=== PATIENT | female | born 1940 | race Caucasian/White ===

== ENCOUNTER 2017-10-24 20:09 | Observation (INO) | payer OTHER, MEDICARE ==
[~2017-10-24] VITALS: Ht 165.1 cm; Wt 90.7 kg
--- NOTE | 2017-10-24 20:21 | ED SYNCOPE COMPLAINT ---
History of Present Illness General Chief Complaint: Fall Stated Complaint: FALL Source: patient Exam Limitations: no limitations Vital Signs & Intake/Output Vital Signs & Intake/Output Vital Signs Date Time Temp Pulse Resp B/P B/P Pulse O2 O2 Flow FiO2 Mean Ox Delivery Rate 10/25 0657 97.5 56 18 140/74 93 10/25 0220 Nasal 2.0L Cannula 10/25 0200 97.5 57 18 128/68 93 Nasal 2.0L Cannula 10/24 2229 96.7 57 20 143/63 97 Nasal 2.0L Cannula 10/24 2031 96.8 57 22 176/82 90 Room Air ED Intake and Output 10/25 0000 10/24 1200 Intake Total 0 Output Total Balance 0 Intake, Oral 0 Patient 200 lb Weight Weight Reported by Patient Measurement Method Allergies Coded Allergies: cefuroxime (From CEFTIN) (STOMACH UPSET 10/24/17) Reconcile Medications Alprazolam 0.5 MG TABLET 1 TAB PO TID ANXIETY (Reported) Divalproex Sodium (Divalproex Sodium ER) 500 MG TAB.ER.24H 1 TAB PO QPM UNKNOWN (Reported) Divalproex Sodium (Depakote ER) 250 MG TAB.ER.24H 1 TAB PO QPM UNKNOWN ( Reported) Donepezil HCl 5 MG TABLET 1 TAB PO DAILY MEMORY (Reported) Levothyroxine Sodium 88 MCG TABLET 1 TAB PO DAILY THYROID (Reported) Loxapine Succinate (Loxapine) 5 MG CAPSULE 1 CAP PO QHS MENTAL HEALTH ( Reported) Metoprolol Tartrate 50 MG TABLET 1 TAB PO DAILY HEART/BP (Reported) Paroxetine HCl 20 MG TABLET 1 TAB PO DAILY MENTAL HEALTH (Reported) Simvastatin (Simvastatin*) 20 MG TABLET 1 TAB PO QPM CHOLESTEROL (Reported) Triage Nurses Notes Reviewed? yes Timing: single episode today Precipitating Factors: none Context: see below Loss of Consciousness: prolonged (minutes) Associated Symptoms: syncope HPI: 77 yo woman was swimming in above ground pool, was taking the steps down, felt dizzy, fell backwards, lost consciousness briefly. She notes that she has no recollection of what transpired since lunch. She does not recall syncopal event, if she hit her head, had chest pain, palpations. She notes that presently, she is feeling better. Past History Medical History Any Pertinent Medical History? see below for history Cardiovascular: hypertension Psychiatric: depression History of MRSA: No History of VRE: No History of CDIFF: No Pneumonia Vaccine: 10/31/07 Influenza Vaccine: 01/29/12 Surgical History Surgical History: non-contributory Psychosocial History Who do you live with Spouse Services at Home None What is your primary language German Family History Hx Contributory? No Review of Systems Review of Systems Constitutional: Reports: no symptoms. EENTM: Reports: no symptoms. Respiratory: Reports: no symptoms. Cardiovascular: Reports: no symptoms. GI: Reports: no symptoms. Genitourinary: Reports: no symptoms. Musculoskeletal: Reports: no symptoms. Skin: Reports: no symptoms. Neurological/Psychological: Reports: no symptoms. All Other Systems: Reviewed and Negative Physical Exam Physical Exam Cranial Nerves: normal hearing, normal speech, PERRL Comments: Review of Systems - except as otherwise noted in HPI Physical Exam Physical Exam General Appearance: well developed/nourished, no apparent distress Head: atraumatic, normal appearance Eyes: Bilateral: normal appearance. Ears, Nose, Throat: normal pharynx, normal ENT inspection Neck: normal inspection, supple, full range of motion Respiratory: normal breath sounds, chest non-tender, no respiratory distress, quiet respiration, lungs clear Cardiovascular: regular rate/rhythm Gastrointestinal: normal bowel sounds, soft, non-tender, no organomegaly Back: normal inspection, normal range of motion Extremities: normal inspection, normal capillary refill, normal range of motion, no edema Neurologic/Psych: no motor/sensory deficits, awake, alert, oriented x 3 Skin: intact, normal color, warm/dry Core Measures ACS in differential dx? No CVA/TIA Diagnosis: No Sepsis Present: No Sepsis Focused Exam Completed? No Progress Differential Diagnosis: Syncope versus dysrhythmia versus other Plan of Care: Orders Procedure Date/time Status CBC WITHOUT DIFFERENTIAL 10/26 599 Active Heart Healthy Diet 10/25 B Active TROPONIN LEVEL 10/25 599 Active BASIC ELECTROLYTES PLUS BUN&CR 10/25 599 Active EKG 10/25 599 Active Pathway - chart 10/25 534 Active House Staff 10/25 534 Active Code Status 10/25 534 Active Vital Signs 10/26 219 Active Teach/Educate 10/26 219 Active Pain Treatment and Response 10/26 219 Active Nutritional Intake, Monitor 10/26 219 Active Isolation 10/26 219 Active Intake & Output 10/26 219 Active Patient Care Conference 10/26 219 Active Activity/Ambulation 10/25 022 Active Patient Data 10/25 0007 Active Add-on Test (ER Only) 10/25 0002 Active VTE Mechanical Prophylaxis 10/25 UNK Active MISTAKE 10/25 UNK Active Heat/Cold Therapy 10/25 UNK Active Saline Lock 10/[address] in observation 10/24 234 Active Misc Message 10/24 2346 Active ED Holding Orders 10/24 2346 Active Vital Signs 10/24 2346 Active Code Status 10/24 2346 Complete TROPONIN LEVEL 10/24 2228 Complete EKG 10/24 2228 Active DEPAKOTE LEVEL 10/24 2034 Complete Intake & Output 10/24 2030 Active TROPONIN LEVEL 10/24 2021 Complete LIPASE 10/24 2021 Complete HEPATIC FUNCTION PANEL 10/24 2021 Complete D-DIMER 10/24 2021 Complete CBC WITHOUT DIFFERENTIAL 10/24 2021 Complete BASIC METABOLIC PANEL 10/24 2021 Complete AMYLASE 10/24 2021 Complete EKG 10/24 2021 Active Current Medications Sig/Mehdi Start time Last Medication Dose Stop Time Status Admin Divalproex Sodium 500 MG QPM 10/25 2100 AC (Depakote ER) Divalproex Sodium 250 MG QPM 10/25 2100 AC (Depakote ER) Atorvastatin Calcium 10 MG 1700 10/25 1700 AC (Lipitor) Alprazolam 0.5 MG TID 10/25 899 AC (Xanax) 11/01 0859 Donepezil HCl 5 MG DAILY 10/25 899 AC (Aricept) Enoxaparin Sodium 40 MG DAILY 10/25 899 AC (Lovenox) Metoprolol Tartrate 50 MG DAILY 10/25 899 AC (Lopressor) Paroxetine HCl 20 MG DAILY 10/25 899 AC (Paxil) Levothyroxine Sodium 0.088 MG DAILY AC 10/25 699 AC (Synthroid) Acetaminophen 650 MG Q6P PRN 10/25 0445 AC (Tylenol) Ibuprofen 600 MG Q6P PRN 10/25 544 AC (Motrin) Non-Formulary 0 SEE ADMIN CRITERIA 10/25 544 UNVr Medication (NON FORMULARY) Laboratory Tests 10/24/17 2240: Troponin I < 0.01 10/24/172034: Anion Gap 8, Estimated GFR > 60, BUN/Creatinine Ratio 20.0, Glucose 98, Calcium 9.2, Total Bilirubin 0.2, Direct Bilirubin 0.2, AST 23, ALT 23, Alkaline Phosphatase 51, Troponin I < 0.01, Total Protein 7.0, Albumin 4.0, Amylase 64, Lipase 209, D-Dimer High Sensitivty 474 H, CBC w Diff NO MAN DIFF REQ, RBC 4.02 L, MCV 92.7, MCH 31.2 H, MCHC 33.7, RDW 14.1, MPV 8.2, Gran % 38.5 L, Lymphocytes % 40.6, Monocytes % 11.4 H, Eosinophils % 9.1 H, Basophils % 0.4, Absolute Granulocytes 1.9, Absolute Lymphocytes 2.0, Absolute Monocytes 0.6, Absolute Eosinophils 0.4, Absolute Basophils 0, Valproic Acid 50.6 Diagnostic Imaging: Viewed by Me: CT Scan. Discussed w/RAD: CT Scan. Radiology Impression: PATIENT: CECI DAVIS PRESENT AGE: 77 PATIENT ACCOUNT NO: [id number] : 40 LOCATION: [facility] ORDERING PHYSICIAN: Jamie Gomez MD SERVICE DATE: 10/24/17 EXAM TYPE: CAT - CTA CHEST-PULMONARY EMBOLISM EXAMINATION: CT ANGIOGRAM OF THE CHEST WITH AND WITHOUT CONTRAST (CT PULMONARY ANGIOGRAM FOR PE) CLINICAL INFORMATION: PERC score + and D-Dimer +, Presumptive Dx: syncope COMPARISON: Radiograph dated 01/01/2013 TECHNIQUE: Prior to contrast administration, noncontrast localization images were obtained. Subsequently, multidetector volumetric imaging was performed from the thoracic inlet to below the diaphragms following the administration of 95 mL Optiray 320 intravenous contrast. No contrast reaction reported. Sagittal, coronal, and MIP oblique sagittal reformatted images were obtained on the CT workstation, uploaded to PACS, and reviewed. Total exam dose-length product 363 mGy-cm. FINDINGS: QUALITY OF STUDY/ CONTRAST BOLUS: Satisfactory PULMONARY ARTERIES: No central or segmental pulmonary emboli. The pulmonary arteries are normal in caliber. Incidental note is made of a few small peripheral regions of aneurysmal dilatation of the pulmonary arteries including a 6 mm focus on image 248/451 of series 2, the elongated 9 mm focus on image 201/451 of series 2 and a 4 mm focus in the posterior aspect of the right lower lobe on image 253/451 of series 2. Multiple additional areas of peripheral pulmonary artery ectasia are noted. THORACIC AORTA: No aneurysm or dissection. Minimal calcific atherosclerosis of the aortic arch. LUNG: Mild bibasilar atelectasis. No focal consolidation. Central airways are clear. PLEURA: No effusion. MEDIASTINUM: Normal heart size. No pericardial effusion. No hilar or mediastinal lymphadenopathy. No evidence of septal bowing or right heart strain. Calcific atherosclerosis present in the coronary arteries. CHEST WALL/AXILLA: No axillary or internal mammary lymphadenopathy. OSSEOUS STRUCTURES: Scoliosis is present in the thoracolumbar spine. There is mild to moderate multilevel degenerative disc disease. Prior vertebroplasty is evident at the T12 level. No acute rib fractures are identified. UPPER ABDOMEN: Cholecystectomy clips are present. No acute findings. There is a 2.3 cm calcification underlying the right hemidiaphragm within the hepatic parenchyma which is of uncertain etiology. No reflux of contrast into the hepatic veins to suggest elevated right heart pressures. IMPRESSION: No acute pulmonary findings. No evidence of pulmonary embolism. Mild bibasilar atelectasis. 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 This is of uncertain etiology and significance, potentially due to developmental variation, connective tissue disorder, or vasculitis. VTE: negative DICTATED BY: Vasile Callahan MD DATE/TIME DICTATED:10/24/172330 REDUCING SYSTEM OPERATOR:KAN DATE/TIME TRANSCRIBED:10/24/172330 CONFIDENTIAL, DO NOT COPY WITHOUT APPROPRIATE AUTHORIZATION. <Electronically signed in Other Vendor System> SIGNED BY: Vasile Callahan MD 10/24/17 4513 Initial ED EKG: normal axis, normal intervals, normal p-waves, normal QRS complex, normal sinus rhythm Repeat EKG: unchanged Departure Departure Disposition: HOME OR SELF CARE Condition: Stable Clinical Impression Primary Impression: Syncope Referrals: David CHOWDARY,Joe Peters (PCP/Family) Departure Forms: Customer Survey General Discharge Information Admission Note Spoke With: Samir Steele MD Documentation of Exam: Documentation of any treatments & extenuating circumstances including Concerns Regarding Discharge (functional status, medication knowledge or non-compliance, living conditions, etc.) that warrant an admission rather than observation: pt with syncopal episode with prolonged amnesia, merits obs evaluation, cards consult.
[2017-10-24 20:47] LABS: ABSOLUTE BASOPHIL COUNT 0 /CUMM (0.0-0.2); ABSOLUTE EOSINOPHIL COUNT 0.4 /CUMM (0.0-0.7); ABSOLUTE GRANULOCYTE CT 1.9 /CUMM (1.4-6.5); ABSOLUTE MONOCYTE COUNT 0.6 /CUMM (0.10-0.60); BASOPHIL % 0.4 % (0.0-2.0); EOSINOPHIL % 9.1 % (0-5); GRANULOCYTE % 38.5 % (42.2-75.2); HEMATOCRIT 37.3 % (37-47); MEAN CORPUSCULAR HGB 31.2 PG (27.0-31.0); MEAN CORPUSCULAR HGB CONC 33.7 G/DL (33.0-37.0); MEAN CORPUSCULAR VOLUME 92.7 FL (81.0-99.0); MEAN PLATELET VOLUME 8.2 FL (7.4-10.4); PLATELET COUNT 153 /CUMM (130-400); RBC DISTRIBUTION WIDTH 14.1 % (11.5-14.5); RED BLOOD CELL CT 4.02 /CUMM (4.20-5.40); WHITE BLOOD CELL COUNT 4.9 /CUMM (4.8-10.8)
--- NOTE | 2017-10-24 21:52 | CT SCAN REPORT ---
EXAMINATION: CT OF THE HEAD AND CERVICAL SPINE WITHOUT CONTRAST CLINICAL INFORMATION: fall, loss of consciousness COMPARISON: 01/19/[address] TECHNIQUE: Contiguous axial imaging was performed from the skull base to vertex. Soft tissue and bony algorithms were evaluated. Coronal reformatted images were obtained on the technologist's workstation. Following this, multiple serial thin slice helical CT scan images through the cervical spine were obtained. Soft tissue and bony algorithms were evaluated. Coronal and sagittal reformatted images were obtained on the technologist workstation. DLP: 992 mGy cm FINDINGS: Head CT: There is symmetrical ventricular and sulcal prominence. Stable age-related pulmonary infarct in the left basal ganglia likely representing a chronic lacunar infarct, unchanged from 2013. Mild age-related periventricular white matter changes are again seen, similar to the prior study as well. There is no evidence of acute intracranial hemorrhage or territorial infarction. No abnormal mass-effect or midline shift is seen. Ahuja to white matter differentiation is otherwise well preserved. No extra-axial fluid collections are identified. The osseous structures and soft tissues are normal. The mastoid air cells and visualized portions of the paranasal sinuses are well-aerated. Cervical spine CT: No prevertebral soft tissue swelling is appreciated. There is a reversal of the normal cervical lordosis possibly due to positioning or spasm. Otherwise the bones are in normal anatomic alignment with no acute fracture or spondylolisthesis. Vertebral body heights are preserved. Multilevel degenerative changes are seen with loss of disc heights from C3 to T2 with osteophyte formation seen more so at C4/C5, C5/C6, and C6/C7. Posterior elements are unremarkable. Visualized airway and lung apices are unremarkable. IMPRESSION: Head CT: Extensive chronic appearing changes similar to the 2013 study with no acute intracranial pathology. C-spine: Multilevel degenerative changes but no definitive acute fracture or spondylolisthesis.
[2017-10-24] MEDS ORDERED: DIVALPROEX SOD500 M3 PO (23:27)
[2017-10-24] MEDS ORDERED: ALPRAZOLAM0.5 M4 PO (23:27)
[2017-10-24] MEDS ORDERED: LOXAPINE PO (23:28)
[2017-10-24] MEDS ORDERED: DEPAKOTE ER250 M1 PO (23:28)
[2017-10-24] MEDS ORDERED: METOPROLOL TART50 M1 PO (23:28)
[2017-10-24] MEDS ORDERED: PAROXETINE HCL20 M1 PO (23:28)
[2017-10-24] MEDS ORDERED: SIMVASTATIN20 M2 PO (23:29)
[2017-10-24] MEDS ORDERED: LEVOTHYROXINE88 MCG PO (23:29)
[2017-10-24] MEDS ORDERED: DONEPEZIL HCL5 MG PO (23:29)
--- NOTE | 2017-10-24 23:47 | RADIOLOGY REPORT ---
EXAMINATION: XR PELVIS CLINICAL INFORMATION: Fall. COMPARISON: AP pelvis January 01, 2013 TECHNIQUE: AP view of the pelvis. FINDINGS: No acute fracture. No dislocation of hips. Old healed fracture of the left superior and inferior pubic ramus. Subchondral sclerosis of the symphysis pubis is unchanged since prior study. Sacroiliac joints are normal. There is degenerative spondylosis of the lower lumbar spine with multilevel disc height narrowing and plate spurring of the vertebrae. Compared to the study of January 01, 2013 there has been no change. IMPRESSION: No acute abnormality of the pelvis.
--- NOTE | 2017-10-24 23:59 | CT SCAN REPORT ---
EXAMINATION: CT ANGIOGRAM OF THE CHEST WITH AND WITHOUT CONTRAST (CT PULMONARY ANGIOGRAM FOR PE) CLINICAL INFORMATION: PERC score + and D-Dimer +, Presumptive Dx: syncope COMPARISON: Radiograph dated 01/01/2013 TECHNIQUE: Prior to contrast administration, noncontrast localization images were obtained. Subsequently, multidetector volumetric imaging was performed from the thoracic inlet to below the diaphragms following the administration of 95 mL Optiray 320 intravenous contrast. No contrast reaction reported. Sagittal, coronal, and MIP oblique sagittal reformatted images were obtained on the CT workstation, uploaded to PACS, and reviewed. Total exam dose-length product 363 mGy-cm. FINDINGS: QUALITY OF STUDY/CONTRAST BOLUS: Satisfactory PULMONARY ARTERIES: No central or segmental pulmonary emboli. The pulmonary arteries are normal in caliber. Incidental note is made of a few small peripheral regions of aneurysmal dilatation of the pulmonary arteries including a 6 mm focus on image 248/451 of series 2, the elongated 9 mm focus on image 201/451 of series 2 and a 4 mm focus in the posterior aspect of the right lower lobe on image 253/451 of series 2. Multiple additional areas of peripheral pulmonary artery ectasia are noted. THORACIC AORTA: No aneurysm or dissection. Minimal calcific atherosclerosis of the aortic arch. LUNG: Mild bibasilar atelectasis. No focal consolidation. Central airways are clear. PLEURA: No effusion. MEDIASTINUM: Normal heart size. No pericardial effusion. No hilar or mediastinal lymphadenopathy. No evidence of septal bowing or right heart strain. Calcific atherosclerosis present in the coronary arteries. CHEST WALL/AXILLA: No axillary or internal mammary lymphadenopathy. OSSEOUS STRUCTURES: Scoliosis is present in the thoracolumbar spine. There is mild to moderate multilevel degenerative disc disease. Prior vertebroplasty is evident at the T12 level. No acute rib fractures are identified. UPPER ABDOMEN: Cholecystectomy clips are present. No acute findings. There is a 2.3 cm calcification underlying the right hemidiaphragm within the hepatic parenchyma which is of uncertain etiology. No reflux of contrast into the hepatic veins to suggest elevated right heart pressures. IMPRESSION: No acute pulmonary findings. No evidence of pulmonary embolism. Mild bibasilar atelectasis. 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 This is of uncertain etiology and significance, potentially due to developmental variation, connective tissue disorder, or vasculitis. VTE: negative
--- NOTE | 2017-10-25 00:39 | History & Physical ---
Jose Arroyo 10/25/17 0038: General Information and HPI MD Statement: I have seen and personally examined CECI DAVIS and documented this H&P. The patient is a 77 year old F who presented with a patient stated chief complaint of [syncope]. History of Present Illness: The patient is a 77 years old lady who is here because of a fall that she had earlier today. She was geting out of a above-ground pool and taking the steps down when she falls. Her was present there and based on the history from her daughter, her has mentioned that she had not LOC. She seems to have difficulty with her memory and states that she has had that for the past 7 years. There is no sign of seizure in the history from the patient and family, no loss of control of bowel or bladder, no headache or postictal symptoms. She has back and hip pain, no chills and fever. She has a history of hypothyroidism and is on levothyroxin, Spinal stenosis, Millwood's disease, Alzheimer's and Schizoaffective disorder. She had increased D-Dimer in the ED, but her CTA did not show any pulmonary embolism, they reported dilated pulmonary arteries. Her ECG is normal, She also has a normal head CT and normal pelvic X-ray. Past History Travel History Traveled to [place] past 21 day No Medical History Neurological: MIGRAINES Cardiovascular: HTN, HIGH CHOLESTEROL Musculoskeletal: ARHTRITIS Psychiatric: SCHIZOAFFECTIVE DISORDER History of MRSA: No History of VRE: No History of CDIFF: No Pneumonia Vaccine: 10/31/07 Influenza Vaccine: 01/29/12 Surgical History Surgical History: non-contributory Past Family/Social History Psychosocial History Services at Home: None Smoking Status: Never Smoked Review of Systems Review of Systems Constitutional: Reports: no symptoms, see HPI. EENTM: Reports: no symptoms. Cardiovascular: Reports: no symptoms. Respiratory: Reports: no symptoms. GI: Reports: no symptoms. Genitourinary: Reports: no symptoms. Musculoskeletal: Reports: no symptoms. Skin: Reports: no symptoms. Neurological/Psychological: Reports: see HPI, dementia, headache. Hematologic/Endocrine: Reports: no symptoms. Immunologic/Allergic: Reports: no symptoms. Exam & Diagnostic Data Last 24 Hrs of Vital Signs/I&O Vital Signs Date Time Temp Pulse Resp B/P B/P Pulse O2 O2 Flow FiO2 Mean Ox Delivery Rate 10/25 0220 Nasal 2.0L Cannula 10/25 0200 97.5 57 18 128/68 93 Nasal 2.0L Cannula 10/249 96.7 57 20 143/63 97 Nasal 2.0L Cannula 10/241 96.8 57 22 176/82 90 Room Air Intake & Output 10/25 0800 10/25 0000 10/24 1600 Intake Total 0 Output Total Balance 0 Intake, Oral 0 Patient 200 lb 200 lb Weight Weight Reported by Patient Measurement Method Physical Exam General Appearance Alert, Oriented X3, Cooperative, No Acute Distress Skin No Rashes, No Significant Lesion Skin Temp/Moisture Exam: Warm/Dry Sepsis Skin Exam (color): Normal for Ethnicity HEENT Atraumatic, PERRLA, Mucous Membr. moist/pink Neck Supple, No JVD Cardiovascular Regular Rate, Normal S1, Normal S2 Lungs Clear to Auscultation, Normal Air Movement Abdomen Normal Bowel Sounds, Soft, No Tenderness, No Hepatospenomegaly, No Masses Neurological Normal Speech, Strength at 5/5 X4 Ext, Normal Tone, Sensation Intact, Cranial Nerves 3-12 NL Extremities No Clubbing, No Cyanosis, Normal Pulses Vascular Normal Pulses Assessment/Plan Assessment: The patient is a 77 yo lady who is here with CC of falling down when getting out of the pool. She has difficulty recalling the events. Most probable cause of the fall is mechanical but we have to rule out causes of syncope like arrthmias, orthostatic hypotension (she is on multiple phsyciatric medications). As Ranked By This Provider Problem List: 1. Millwood's disease 2. History of - hypothyroidism 3. Psychiatric disorder 4. Syncope Core Measures/Misc (01/05) Acute Coronary Syndrome ACS Diagnosis: No Congestive Heart Failure Congestive Heart Failure Diagnosis No Cerebrovascular Accident CVA/TIA Diagnosis: No VTE (View Protocol) VTE Risk Factors Age>40 No Mechanical VTE Prophylaxis d/t N/A MechProphylax Ordered No VTE Pharm Prophylaxis d/t NA PharmProphylax ordered Sepsis (View protocol) Sepsis Present: No If YES complete Sepsis Event Note If YES complete Sepsis Event Note Samir Steele MD 10/25/17 5924: General Information and HPI MD Statement: I have seen and personally examined CECI DAVIS and documented this H&P. The patient is a 77 year old F who presented with a patient stated chief complaint of [syncope]. Allergies/Medications Allergies: Coded Allergies: cefuroxime (From CEFTIN) (STOMACH UPSET 10/24/17) Home Med list Alprazolam 0.5 MG TABLET 1 TAB PO TID ANXIETY (Reported) Divalproex Sodium (Divalproex Sodium ER) 500 MG TAB.ER.24H 1 TAB PO QPM UNKNOWN (Reported) Divalproex Sodium (Depakote ER) 250 MG TAB.ER.24H 1 TAB PO QPM UNKNOWN ( Reported) Donepezil HCl 5 MG TABLET 1 TAB PO DAILY MEMORY (Reported) Levothyroxine Sodium 88 MCG TABLET 1 TAB PO DAILY THYROID (Reported) Loxapine Succinate (Loxapine) 5 MG CAPSULE 1 CAP PO QHS MENTAL HEALTH ( Reported) Metoprolol Tartrate 50 MG TABLET 1 TAB PO DAILY HEART/BP (Reported) Paroxetine HCl 20 MG TABLET 1 TAB PO DAILY MENTAL HEALTH (Reported) Simvastatin (Simvastatin*) 20 MG TABLET 1 TAB PO QPM CHOLESTEROL (Reported) Compliance With Home Meds: GOOD Past History Medical History Neurological: Alzheimer's disease, MIGRAINES Cardiovascular: hypertension, hyperlipidemia Musculoskeletal: osteoarthritis Psychiatric: schizo affective disorder Past Family/Social History Psychosocial History Smoking Status: Never Smoked ETOH Use: denies use Employment History Employment Retired Review of Systems Review of Systems Constitutional: Reports: see HPI. Comments 12 point review positives noted in HPI Exam & Diagnostic Data Last 24 Hrs of Vital Signs/I&O Vital Signs Date Time Temp Pulse Resp B/P B/P Pulse O2 O2 Flow FiO2 Mean Ox Delivery Rate 10/25 0220 Nasal 2.0L Cannula 10/25 0200 97.5 57 18 128/68 93 Nasal 2.0L Cannula 10/249 96.7 57 20 143/63 97 Nasal 2.0L Cannula 10/24 2031 96.8 57 22 176/82 90 Room Air Intake & Output 10/25 0800 10/25 0000 10/24 1600 Intake Total 0 Output Total Balance 0 Intake, Oral 0 Patient 200 lb 200 lb Weight Weight Reported by Patient Measurement Method Physical Exam General Appearance Alert, Oriented X3, No Acute Distress Skin No Rashes HEENT Atraumatic, PERRLA, Facial tick Neck Supple, No JVD Cardiovascular Regular Rate, Normal S1, Normal S2 Lungs Clear to Auscultation Abdomen Normal Bowel Sounds, Soft, No Tenderness Extremities No Clubbing, Normal Pulses Last 24 Hrs of Labs/Johnnie: Laboratory Tests 10/24/17 2240: Troponin I < 0.01 10/24/175: Anion Gap 8, Estimated GFR > 60, BUN/Creatinine Ratio 20.0, Glucose 98, Calcium 9.2, Total Bilirubin 0.2, Direct Bilirubin 0.2, AST 23, ALT 23, Alkaline Phosphatase 51, Troponin I < 0.01, Total Protein 7.0, Albumin 4.0, Amylase 64, Lipase 209, D-Dimer High Sensitivty 474 H, CBC w Diff NO MAN DIFF REQ, RBC 4.02 L, MCV 92.7, MCH 31.2 H, MCHC 33.7, RDW 14.1, MPV 8.2, Gran % 38.5 L, Lymphocytes % 40.6, Monocytes % 11.4 H, Eosinophils % 9.1 H, Basophils % 0.4, Absolute Granulocytes 1.9, Absolute Lymphocytes 2.0, Absolute Monocytes 0.6, Absolute Eosinophils 0.4, Absolute Basophils 0, Valproic Acid 50.6 Core Measures/Misc (01/05) Sepsis (View protocol) If YES complete Sepsis Event Note If YES complete Sepsis Event Note Attending MD Review Statement Attending Statement Attending MD Statement: examined this patient, discuss w/resident/PA/PRINCIPAL SOFTWARE ARCHITECT Attending Assessment/Plan: This patient is a 77 year old female with a significant past medical history for Addisons disease, Alzheimers, Schizoaffective disorder, HTN, HLD . The patient was in her usual state of health until today when she was came out of her pool and collapsed. The collapse was witnessed by her and there were no associated seizures. She had difficult recalling the events of the fall or the afternoon (which occasionally happens to her). Upon evaluation in the ED she was noted to have an elevated D-dimer and a follow up CTA was negative for PE. Placed in observation overnight on tele to rule out arrythmias and further episodes. Christiano Zhao MD 10/25/17 0741: Core Measures/Misc (01/05) Sepsis (View protocol) If YES complete Sepsis Event Note If YES complete Sepsis Event Note Resident Review Statement Resident Statement: examined this patient, discussed with administrative intern, discussed with family, reviewed EMR data (avail) Other Findings: Patient is a 77-year-old female with past medical history of Millwood's, history of CVA with Infarct of left ganglia, dementia, hypothyroidism, spinal stenosis, history of falls, presenting this admission with chief complaint of fall. Patient has a history of dementia and is a poor historian. Patient's family ( daughter and son-in-law) were present at the time of interview. Patient reports that she does not remember all of the events that occurred. Reports that she was swimming this afternoon and was getting out of the pool walking down the stairs when she reportedly fell. Patient states that she does not remember this however she and her daughter state that patient's witnessed the fall and believes patient did not lose consciousness. Patient reports that the last thing she remembers is when the EMT came and started asking questions. Patient states prior to the fall she did feel weak when she was in the swimming pool. Patient denies any lightheadedness, dizziness, chest pain, palpitations, visual disturbances, seizure-like activity. Patient's daughter reports that she has fallen in the past attributed to significant spinal stenosis. PCP: Dr. Hernandez Endo: Dr. Avilez Psych: Dr. Santana Pharmacy: [facility] Physical exam: Vitals: MAXIMUM TEMPERATURE 96.8, heart rate 57, respiration rate 20-22, blood pressure 176/82 went down to 143/63, saturating initially at 90% on room air and 97% after 2 L nasal cannula Gen.: Patient resting in no acute distress HEENT: Normocephalic atraumatic, pupils equal and reactive to light and accommodation, extraocular movements intact, moist mucosal membranes CVS: regular rate and rhythm, S1 and S2, no murmurs, rubs or gallops appreciated Lungs: Clear to auscultation bilaterally Abdomen: Soft nontender nondistended positive bowel sounds Neuro: Alert and oriented 3, cranial nerves II through XII intact, motor strength 5 out of 5 in all extremities, sensation grossly intact, gait not assessed Extremities: No cyanosis, edema, tenderness, pulses palpable 2+ Labs: WBC 4.9, H&H 12.6 and 37.3, platelets 153 Sodium 138, potassium 4.6, chloride 96, bicarbonate 34, BUN 18, creatinine 0.9, glucose 98, LFTs within normal limits, troponin less than 0.01, second troponin less than 0.01, amylase 64, lipase 209, d-dimer 474, valproic acid level within normal limits EKG: Normal sinus rhythm with heart rate of 57, no ST or T-wave changes Imaging: Chest CTA: Negative for pulmonary embolism, area of pulmonary artery dilatation, mild bibasilar atelectasis Pelvis x-ray: Negative for any acute findings Head CT: Negative for acute findings, chronic lacunar infarct unchanged from [address]: Multilevel degenerative changes, no acute findings Assessment plan: Patient is a 77-year-old female with past medical history significant for Juan J's disease, Alzheimer's dementia, schizoaffective disorder, presenting after a witnessed fall. It is unclear if patient had a syncopal event or if this is purely a mechanical fall. Further evaluation is warranted to rule out neurocardiac etiology. Other possibilities include orthostatic hypotension, autonomic dysfunction secondary to multiple psychiatric medications. Plan: Observe on telemetry Repeat EKG and troponin Monitor vitals every shift Orthostatic vitals Repeat CBC and BEP in AM Consider cardiac consult in AM Consider ECHO if significant findings on EKG/troponin Resume home medications - family is adamant about continuing medications. Some of these medications have the potential to cause autonomic dysfunction. May need to be re-evaluated. Code: DNR/DNI DVT PPx: Lovenox, ALPS Diet: Heart healthy
[2017-10-25 02:00] VITALS: BP 128/68
[2017-10-25 06:57] VITALS: BP 140/74
[2017-10-25 07:59] VITALS: BP 140/74
--- NOTE | 2017-10-25 12:56 | PN- Att Addend ---
Attending Addendum Attending Brief Note Ms. Ackerman was seen and evaluated. Briefly, she is a 77 year old lady with PMH of Addisons disease, Alzheimers, Schizoaffective disorder, HTN, HLD admitted after syncopal episode witnessed by her and there were no associated seizures. In ED found to have elevated D-Dimer and CTA was negative for PD. VSS Labs/Diagnostics-reviewed A/P: --no tele events, CE x 3 negative --D/C to home today, recommend BP readings at home --f/u with PCP and Automobile Mechanic Helper if symptoms persists --family was updated by the bedside
--- NOTE | 2017-10-25 12:57 | Patient Discharge Instructions ---
Discharge Instructions General Discharge Information You were seen/treated for: Syncope Watch for these problems: In case of chest pain, palpitation, nausea, vomiting, dizziness, fall, loss of consciousness please go to nearest emergency room. Please check your blood pressure at home and report to your primary care physician if it is more than 170/80. Special Instructions: Please follow-up with your primary care provider within 1-2 weeks of discharge and let them know about your recent admission at [facility] Diet Recommended Diet: Heart Healthy Activity Activity Self Limited: No Acute Coronary Syndrome Inclusion Criteria At DC or during hospital stay patient has or had the following: ACS DIAGNOSIS No Discharge Core Measures Meds if any: Prescribed or Continued at Discharge Meds if any: NOT Prescribed or Continued at Discharge Congestive Heart Failure Inclusion Criteria At DC or during hospital stay patient has or had the following: CHF DIAGNOSIS No Discharge Core Measures Meds if any: Prescribed or Continued at Discharge Meds if any: NOT Prescribed or Continued at Discharge Cerebrovascular accident Inclusion Criteria At DC or during hospital stay patient has or had the following: CVA/TIA Diagnosis No Discharge Core Measures Meds if any: Prescribed or Continued at Discharge Meds if any: NOT Prescribed or Continued at Discharge Venous thromboembolism Inclusion Criteria VTE Diagnosis No VTE Type NONE VTE Confirmed by (Test) NONE Discharge Core Measures - Per Current guidelines, there needs to be overlap - treatment for the first 5 days of Warfarin therapy. - If discharged on Warfarin prior to 5 days of - overlap therapy, the patient will need to be - assessed for post discharge needs including - *Post discharge parental anticoagulation - *Warfarin and/or parental anticoagulation education - *Follow up date to check INR post discharge At least 5 days overlap therapy as Inpatient No Meds if any: Prescribed or Continued at Discharge Note: Overlap Therapy is Warfarin and Anticoagulant Meds if any: NOT Prescribed or Continued at Discharge
== END 2017-10-25 14:35 ==
LOC: ERH 20:09 → ERHI 23:46 → 1NO 23:46 → ENRESERV 10-25 00:52 → 1NO 10-25 01:46 → ENPENDDIS 10-25 13:01 → ENTRNSPT 10-25 14:15 → 1NO 10-25 14:35 → CMPTRNSPT 10-25 15:09
PROVIDERS: Pediatrics
DX: R55 Syncope and collapse (principal); E03.9 Hypothyroidism, unspecified; M48.00 Spinal stenosis, site unspecified; E27.1 Primary adrenocortical insufficiency; E78.5 Hyperlipidemia, unspecified; M19.90 Unspecified osteoarthritis, unspecified site; G30.9 Alzheimer's disease, unspecified; F02.81 Dementia in other diseases classified elsewhere, unspecified severity, with behavioral disturbance; F25.9 Schizoaffective disorder, unspecified; G43.909 Migraine, unspecified, not intractable, without status migrainosus; I10 Essential (primary) hypertension
CPT/HCPCS: 6020; 36592; 72170; 82436; 93005; 93010; 96372; G0378; J1650